=== PATIENT | male | born 1970 ===

== ENCOUNTER 2024-01-30 15:20 | Inpatient (IN) | payer OTHER ==
[2024-01-30] MEDS ORDERED: POTASSIUM CHLORIDE ER 20 MEQ TAB.ER PO ONE (16:08)
[2024-01-30] MEDS ORDERED: MAGNESIUM SULFATE-D5W PMX 100 ML IVPB ONE (16:09)
[2024-01-30] MEDS ORDERED: MAGNESIUM SULFATE-D5W PMX 200 ML IVPB ONE (18:07)
[2024-01-30] MEDS ORDERED: POTASSIUM CHLORIDE 100 ML IVPB ONE ×2 (18:07)
[2024-01-31] MEDS ORDERED: PANTOPRAZOLE 40 MG TABLET PO ONE (08:34)
[2024-01-31] MEDS ORDERED: ENOXAPARIN 40 MG/0.4 ML SYRINGE SQ ONE (08:35)
[2024-01-31] MEDS ORDERED: POTASSIUM CHLORIDE ER 20 MEQ TAB.ER PO ONE (10:24)
[2024-01-31] MEDS ORDERED: POTASSIUM CHLORIDE 400 ML ONE (10:25)
[2024-01-31] MEDS ORDERED: ACETAMINOPHEN TAB 325 MG TAB ONE (20:01)
[2024-02-01] MEDS ORDERED: LORazepam 1 MG TAB ONE (00:26)
[2024-02-01] MEDS ORDERED: ENOXAPARIN 40 MG/0.4 ML SYRINGE SQ ONE (09:27)
[2024-02-01] MEDS ORDERED: PANTOPRAZOLE 40 MG TABLET PO ONE (09:27)
[2024-02-01] MEDS ORDERED: ESCITALOPRAM 10 MG TAB ONE (13:27)
--- NOTE | 2024-03-17 12:22 | CONS ---
CONSULTATION This is a psychiatric consultation. IDENTIFYING DATA: The patient is a 53-year-old male, he is single, he has no kids, he lives alone in an apartment, he is unemployed. The patient is in room #369. REASON FOR CONSULTATION: The patient is reportedly using alcohol, was depressed and endorsing suicidal thoughts. HPI: The patient was admitted over the weekend to the hospital through the ER. The patient apparently had a negative blood alcohol level, potassium was low. Apparently, he had been drinking heavily over the weekend and drinks chronically and having increasing suicidal thoughts, depression. The patient's nurse did not give any further details about the patient's current condition. The patient is currently on one-to-one sitter at the bedside. The patient did claim that he is having financial stressors at home, states that he is having problems with his landlord as his landlord raised his rent by another 100 dollars a month. States that he has been mainly isolative, increasing depression, anxiety, states that he has been drinking heavier recently and has a long history of alcohol use. States that he has been drinking approximately 3-1/2 gallons of vodka a week. He states that he has currently mild tremors, denies any history of seizures and denies any history of delirium tremens. He states that he is still feeling unwell, claims that his hands and feet were feeling numb, claimed that his stomach was also upset. He was endorsing hopelessness and feeling overwhelmed with financial burden, also states that he will try to find a job, however, does not believe he can hold a job. Claims that he is feeling depressed at this time, endorsing suicidal thoughts, no plan. Denies any homicidal ideations. He claims that he is worried about potentially being homeless if he is evicted from the house. Denies any auditory or visual hallucinations. He states that he had a noose around his neck before coming in to the hospital, however, talked himself in to coming in for help. States that he is not on any psychiatric medications. States that his sleep and appetite are fair at this time. SUBSTANCE USE HISTORY: The patient claims that he has a long history of alcohol use as noted above, denies any other recreational drug use. Denies any nicotine use. PAST MEDICAL HISTORY: Please refer to medical history from [facility] PAST PSYCHIATRIC HISTORY: The patient states that he has a history of depression, anxiety, and also alcohol use disorder. He states that he has never been admitted to a mental health unit in the past, denies any outpatient treatment. He denies any current psychiatric medications, however, did state that he was previously prescribed Xanax in the past. He claims that he did not have any previous suicide attempts. Denies any access to guns or weapons. FAMILY HISTORY: He claims that his father committed suicide and possibly had other mental health problems in his family. SOCIAL HISTORY: He states that he is born and raised in [place], now currently lives locally, states that he lives in an apartment alone, he is unemployed, he is single, has no kids. 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 Claims that he did go to [facility] several times in the past including a DUI and different charges including assault and other drug-related charges. MENTAL STATUS EXAMINATION: The patient is mildly overweight, balding, wearing glasses, in moderate distress, appears to be anxious and attempts to cooperate. Claims that his mood is depressed, speech is fluent and concrete. Denies any paranoia or delusions. Denies any current homicidal ideations, endorsing suicidal thoughts, no plan, denying any visual hallucinations or auditory hallucinations. Insight and judgment are poor. DIAGNOSES: 1. Major depressive disorder, severe, without psychotic features. 2. Alcohol use disorder, severe. 3. Financial difficulties. PLAN OF TREATMENT: At this time, the patient does meet inpatient psychiatric criteria. Given patient's suicidal thoughts and suicide attempt, it is not safe to go home. The patient may be transferred to the inpatient psychiatric unit once a bed is available and he is medically cleared. Please continue one-to-one safety belt installer until the patient is transferred to the mental health unit. MEDICATIONS: 1. The patient is agreeable to try Lexapro 5 mg daily for mood/anxiety. 2. Also will start Librium 20 mg t.i.d. p.o. for alcohol withdrawal symptoms. 3. Continue with CIWA protocol with p.r.n. Ativan. The patient was counseled on the alcohol use. States that he is indifferent at this time about going to rehab and was mainly focused on his housing issues, we will continue to revisit this once he is admitted psychiatrically. He is refusing anti- craving medications at this time. Certified Nurse Midwife spoke with patient's nurse about plan and communicated the plan to her and also the patient. At that time, Psychiatry will sign off. Thank you for the consult. DAVID / SALO: [id number] /
== END 2024-02-01 16:00 | DRG 751 ==
LOC: 3SCARD 15:20
PROVIDERS: ADMIT Student in an Organized Health Care Education/Training Program; ATTEND Student in an Organized Health Care Education/Training Program
PROC: HZ2ZZZZ Detoxification Services for Substance Abuse Treatment (ICD-10-PCS; principal; 2024-01-30)
DX: F33.2 Major depressive disorder, recurrent severe without psychotic features (principal); E83.42 Hypomagnesemia; R45.851 Suicidal ideations; K29.70 Gastritis, unspecified, without bleeding; G62.9 Polyneuropathy, unspecified; D53.9 Nutritional anemia, unspecified; E87.1 Hypo-osmolality and hyponatremia; E87.6 Hypokalemia; E87.3 Alkalosis; M10.9 Gout, unspecified; F41.9 Anxiety disorder, unspecified; F10.10 Alcohol abuse, uncomplicated
CPT/HCPCS: 82728; 83540; 83550; 93005; 99291

== ENCOUNTER 2024-02-02 03:20 | Inpatient (IN) | payer MEDICAID, OTHER ==
[2024-02-02] MEDS ORDERED: ESCITALOPRAM 10 MG TAB ONE ×2 (08:15→08:55)
[2024-02-02] MEDS ORDERED: NICOTINE 14MG/24HR PATCH TRANSDERM ONE (08:16)
[2024-02-02] MEDS ORDERED: NALTREXONE HCL 50 MG TAB ONE (12:24)
[2024-02-02] MEDS ORDERED: THIAMINE 100 MG TAB ONE (12:26)
[2024-02-02] MEDS ORDERED: MULTIVITAMINS, THERA 1 EACH TAB ONE (12:26)
[2024-02-02] MEDS ORDERED: FOLIC ACID 1 MG TAB ONE (13:22)
[2024-02-02] MEDS ORDERED: ACETAMINOPHEN TAB 325 MG TAB ONE (20:40)
[2024-02-03] MEDS ORDERED: NICOTINE 14MG/24HR PATCH TRANSDERM ONE (08:01)
[2024-02-03] MEDS ORDERED: NALTREXONE HCL 50 MG TAB ONE (08:02)
[2024-02-03] MEDS ORDERED: MULTIVITAMINS, THERA 1 EACH TAB ONE (08:02)
[2024-02-03] MEDS ORDERED: ESCITALOPRAM 10 MG TAB ONE (08:02)
[2024-02-03] MEDS ORDERED: THIAMINE 100 MG TAB ONE (08:02)
[2024-02-03] MEDS ORDERED: FOLIC ACID 1 MG TAB ONE (08:02)
[2024-02-03] MEDS ORDERED: allopurinoL 300 MG TAB PO ONE (23:59)
[2024-02-04] MEDS ORDERED: NICOTINE 14MG/24HR PATCH TRANSDERM ONE (08:25)
[2024-02-04] MEDS ORDERED: FOLIC ACID 1 MG TAB ONE (08:25)
[2024-02-04] MEDS ORDERED: THIAMINE 100 MG TAB ONE (08:25)
[2024-02-04] MEDS ORDERED: MULTIVITAMINS, THERA 1 EACH TAB ONE (08:25)
[2024-02-04] MEDS ORDERED: ESCITALOPRAM 10 MG TAB ONE (08:26)
[2024-02-04] MEDS ORDERED: allopurinoL 300 MG TAB PO ONE (23:59)
[2024-02-05] MEDS ORDERED: MULTIVITAMINS, THERA 1 EACH TAB ONE (07:55)
[2024-02-05] MEDS ORDERED: THIAMINE 100 MG TAB ONE (07:55)
[2024-02-05] MEDS ORDERED: NICOTINE 14MG/24HR PATCH TRANSDERM ONE (07:55)
[2024-02-05] MEDS ORDERED: ESCITALOPRAM 10 MG TAB ONE (07:56)
[2024-02-05] MEDS ORDERED: FOLIC ACID 1 MG TAB ONE (07:56)
[2024-02-05] MEDS ORDERED: ACETAMINOPHEN TAB 325 MG TAB ONE (08:14)
[2024-02-05] MEDS ORDERED: allopurinoL 300 MG TAB PO ONE (23:59)
[2024-02-06] MEDS ORDERED: ESCITALOPRAM 10 MG TAB ONE (07:48)
[2024-02-06] MEDS ORDERED: MULTIVITAMINS, THERA 1 EACH TAB ONE (07:48)
[2024-02-06] MEDS ORDERED: THIAMINE 100 MG TAB ONE (07:49)
[2024-02-06] MEDS ORDERED: FOLIC ACID 1 MG TAB ONE (07:49)
[2024-02-06] MEDS ORDERED: allopurinoL 300 MG TAB PO ONE (23:59)
[2024-02-07] MEDS ORDERED: ESCITALOPRAM 10 MG TAB ONE (08:01)
[2024-02-07] MEDS ORDERED: THIAMINE 100 MG TAB ONE (08:01)
[2024-02-07] MEDS ORDERED: FOLIC ACID 1 MG TAB ONE (08:01)
[2024-02-07] MEDS ORDERED: MULTIVITAMINS, THERA 1 EACH TAB ONE (08:02)
== END 2024-02-07 15:25 | disposition home or self-care (01) | DRG 751 ==
LOC: 3MHU 03:20
PROVIDERS: ADMIT Psychiatry & Neurology Psychiatry; ATTEND Psychiatry & Neurology Psychiatry
PROC: HZ2ZZZZ Detoxification Services for Substance Abuse Treatment (ICD-10-PCS; principal; 2024-02-02)
DX: F33.3 Major depressive disorder, recurrent, severe with psychotic symptoms (principal); D64.9 Anemia, unspecified; E87.1 Hypo-osmolality and hyponatremia; Z71.41 Alcohol abuse counseling and surveillance of alcoholic; F10.10 Alcohol abuse, uncomplicated
CPT/HCPCS: 80061; 83036